=== PATIENT | male | born 1935 | race Caucasian/White ===

== ENCOUNTER 2021-08-16 14:45 | Emergency (ER) | payer MEDICARE ==
[~2021-08-16] VITALS: Ht 182.9 cm; Wt 81.8 kg
[~2021-08-16 14:45] MED LIST: CALC500T63 PO; CEFD300C3 PO; FLO0.4C PO; METR-159 PO; MULT-620 PO; ROSU40TA22 PO; TERA2CAP4 PO
[2021-08-16] MEDS ORDERED: normal saline 1000ML IV soln IVB ONE (15:50)
[2021-08-16 16:57] LABS: BASOPHILS # (AUTO) 0.1 X10'3 (0-0.2); BASOPHILS % (AUTO) 0.8 % (0-1); EOSINOPHILS % (AUTO) 0.4 % (0-6); HEMATOCRIT 40.5 % (42.0-52.0); HEMOGLOBIN 13.5 g/dl (14.0-17.9); LYMPHOCYTES # (AUTO) 1.1 X10'3 (1.1-4.8); LYMPHOCYTES % (AUTO) 9.5 % (21-51); MEAN CORPUSCULAR HEMOGLOBIN 29.7 PG (27.0-31.0); MEAN CORPUSCULAR HGB CONC 33.4 g/dL (33.0-36.5); MEAN PLATELET VOLUME 7.1 FL (7.4-10.4); MONOCYTES % (AUTO) 8.4 % (2-12); NEUTROPHILS # (AUTO) 9.7 X10'3 (1.8-7.7); NEUTROPHILS % (AUTO) 80.9 % (42-75); PLATELET COUNT 467 X10'3 (140-440); RED BLOOD COUNT 4.55 X10'6 (4.70-6.10); RED CELL DISTRIBUTION WIDTH 14.1 % (11.5-14.5)
[2021-08-16 17:01] LABS: CLARITY,URINE CLOUDY (Clear); GLUCOSE, URINE NEGATIVE (Neg); KETONES,URINE TRACE mg/dl (Neg); LEUKOCYTE ESTERASE ,URINE NEGATIVE (Neg); NITRITES, URINE NEGATIVE (Neg); OCCULT BLOOD,URINE LARGE (Neg); PH,URINE 5.5 (4.8-8.0); PROTEIN,URINE 100 mg/dl (Neg)
[2021-08-16 17:12] VITALS: BP 137/77
[2021-08-16 17:18] LABS: ALANINE AMINOTRANSFERASE 32 U/L (12-78); ALBUMIN 2.7 G/DL (3.4-5.0); ALBUMIN/GLOBULIN RATIO 0.6 (1.1-1.5); ANION GAP 13 (8-16); ASPARTATE AMINO TRANSFERASE 26 U/L (10-37); BILIRUBIN,TOTAL 0.6 MG/DL (0.1-1.0); BLOOD UREA NITROGEN 16 MG/DL (7-18); BUN/CREATININE RATIO 14.2 (5.4-32.0); CALCIUM 8.4 MG/DL (8.5-10.1); CHLORIDE 108 MMOL/L (99-107); CREATININE 1.13 MG/DL (0.60-1.10); GLUCOSE 108 MG/DL (70-104); POTASSIUM 4.5 MMOL/L (3.5-5.1); SODIUM 146 MMOL/L (135-145); TOTAL CARBON DIOXIDE 25.2 MMOL/L (24-32); eGFR 62 ML/MIN
[2021-08-16 17:56] LABS: UA COLLECTION TYPE STRAIGHT CATH
[2021-08-16 17:57] LABS: COLOR,URINE DARK YELLOW (Yellow)
[2021-08-16 17:59] LABS: AMORPHOUS URATES 4+; BACTERIA,URINE FEW /HPF (Neg); RBC,URINE 20-50 /HPF (0-2); SQUAMOUS EPITHELIAL CELL,UR FEW /LPF (FEW); TRANSITIONAL EPI CELLS,URINE FEW /HPF; WBC,URINE 0-4 /HPF (0-4)
== END 2021-08-16 19:38 | disposition home or self-care (01) ==
LOC: ER 14:45
DX: R53.1 Weakness (principal); E78.00 Pure hypercholesterolemia, unspecified; Z98.890 Other specified postprocedural states; Z72.89 Other problems related to lifestyle; Z79.2 Long term (current) use of antibiotics; Z79.899 Other long term (current) drug therapy
CPT/HCPCS: 36415; 80053; 81001; 85025; 93005; 96360; 96361; 99284; J7030

== ENCOUNTER 2022-07-17 13:29 | Outpatient (CLI) | payer MEDICARE ==
[~2022-07-17 13:29] MED LIST changes: -CEFD300C3 PO; -FLO0.4C PO; -METR-159 PO
== END 2022-07-17 23:59 | disposition home or self-care (01) ==
LOC: RAD 13:29
PROVIDERS: ATTEND Internal Medicine
DX: I08.8 Other rheumatic multiple valve diseases (principal)
CPT/HCPCS: 93306

== ENCOUNTER 2022-10-31 12:14 | Day surgery (SDC) | payer MEDICARE ==
[2022-10-27 11:34] LABS: BASOPHILS % (AUTO) 0.9 % (0-1); EOSINOPHILS # (AUTO) 0.1 X10'3 (0-0.9); EOSINOPHILS % (AUTO) 2.5 % (0-6); HEMATOCRIT 44.4 % (42.0-52.0); LYMPHOCYTES # (AUTO) 1.4 X10'3 (1.1-4.8); LYMPHOCYTES % (AUTO) 27.1 % (21-51); MEAN CORPUSCULAR HEMOGLOBIN 30.3 PG (27.0-31.0); MEAN CORPUSCULAR HGB CONC 33.7 g/dL (33.0-36.5); MEAN CORPUSCULAR VOLUME 90.1 FL (78-98); MEAN PLATELET VOLUME 7.9 FL (7.4-10.4); MONOCYTES # (AUTO) 0.5 X10'3 (0-0.9); MONOCYTES % (AUTO) 10.1 % (2-12); NEUTROPHILS # (AUTO) 3.1 X10'3 (1.8-7.7); NEUTROPHILS % (AUTO) 59.4 % (42-75); PLATELET COUNT 182 X10'3 (140-440); RED BLOOD COUNT 4.93 X10'6 (4.70-6.10); RED CELL DISTRIBUTION WIDTH 13.7 % (11.5-14.5); WHITE BLOOD COUNT 5.3 X10'3 (4.5-11.0)
[2022-10-27 11:51] LABS: APTT 29 SECONDS (22-32)
[2022-10-27 11:55] LABS: ALBUMIN 3.6 G/DL (3.4-5.0); ANION GAP 2 (8-16); BLOOD UREA NITROGEN 8 MG/DL (7-18); BUN/CREATININE RATIO 9.9 (10.0-20.0); CALCIUM 8.9 MG/DL (8.5-10.1); CHLORIDE 111 MMOL/L (99-107); CHOL/HDL RATIO 2.2 (0.00-4.99); CHOLESTEROL 124 MG/DL (0-200); CREATININE 0.81 MG/DL (0.60-1.10); GLUCOSE 94 MG/DL (70-104); HDL CHOLESTEROL 56 MG/DL (35-60); LDL CHOLESTEROL 50 MG/DL (50-100); POTASSIUM 4.3 MMOL/L (3.5-5.1); SODIUM 141 MMOL/L (135-145); TOTAL CARBON DIOXIDE 27.8 MMOL/L (24-32); TRIGLYCERIDES 67 MG/DL (20-135); eGFR > 90 ML/MIN
[~2022-10-31] VITALS: Ht 177.8 cm; Wt 93.5 kg
[2022-10-31] VITALS (10 sets, daily range): BP systolic 121–151; BP diastolic 65–84
[2022-10-31] MEDS ORDERED: ASPI81TA52 PO (12:41)
[2022-10-31] MEDS ORDERED: diphenhydrAMINE 25mg capsule PO PRN (12:45)
[2022-10-31] MEDS ORDERED: LORazepam 0.5 MG tablet PO PRN (12:45)
[2022-10-31] MEDS ORDERED: normal saline 1,000 ML IV SCH (12:45)
[2022-10-31] MEDS ORDERED: fentaNYL/PF 50MCG/1 ML 2ML syringe ONE (13:06)
[2022-10-31] MEDS ORDERED: LIDOcaine 1% (10mg/ml) 2ml vial ONE (13:06)
[2022-10-31] MEDS ORDERED: heparin 1,000unit/ml 10ml vial 10 ML ONE (13:06)
[2022-10-31] MEDS ORDERED: nitroGLYCERIN-Tridil 50MG/D5W 250 ML IV ONE (13:06)
[2022-10-31] MEDS ORDERED: midazolam 1 mg/ML 2ml injection ONE (13:06)
[2022-10-31] MEDS ORDERED: verapamil 2.5 mg/ml inj IV ONE (13:06)
[2022-10-31] MEDS ORDERED: iohexol 350MG/ML 100ml bottle IV ONE (13:06)
[2022-10-31 15:05] LABS: ISTAT HGB ART 13.3 g/dl (14.0-17.9); ISTAT Hct ART 39 %PCV (42-52); ISTAT O2 SATURATION ARTERIAL 94 % (95-98); ISTAT SOURCE ART
[2022-10-31] MEDS ORDERED: HYDROcodone/acetaminophen 5mg/325mg tablet PO PRN (16:05)
[2022-10-31] MEDS ORDERED: HYDROcodone/acetaminophen 10/325mg tab PO PRN (16:05)
[2022-11-01 06:00] LABS: ISTAT Hct MIX 41 %PCV (42-52); ISTAT O2 SATURATION MIX VENOUS 70 % (60-80); ISTAT SOURCE VEN
== END 2022-10-31 18:56 | disposition home or self-care (01) ==
LOC: SSTAY O 12:14
PROVIDERS: ATTEND Student in an Organized Health Care Education/Training Program
DX: I35.0 Nonrheumatic aortic (valve) stenosis (principal); I10 Essential (primary) hypertension; E78.5 Hyperlipidemia, unspecified; Z79.899 Other long term (current) drug therapy; Z79.01 Long term (current) use of anticoagulants
CPT/HCPCS: 36415; 80048; 80061; 82803; 85014; 85025; 85610; 85730; 93005; 93456; 99152; 99153; C1769; C1894; J1644; J2250; J3010; J3490; J7030; Q9967; A6258; A6402; C1751

== ENCOUNTER 2022-11-29 10:19 | Outpatient (CLI) | payer MEDICARE ==
[~2022-11-29 10:19] MED LIST changes: +ASPI81TA52 PO; -CALC500T63 PO
[2022-11-29 10:54] LABS: BASOPHILS % (AUTO) 0.8 % (0-1); EOSINOPHILS # (AUTO) 0.1 X10'3 (0-0.9); EOSINOPHILS % (AUTO) 1.7 % (0-6); HEMATOCRIT 44.3 % (42.0-52.0); HEMOGLOBIN 14.8 g/dl (14.0-17.9); LYMPHOCYTES # (AUTO) 1.6 X10'3 (1.1-4.8); LYMPHOCYTES % (AUTO) 29.6 % (21-51); MEAN CORPUSCULAR HEMOGLOBIN 30.2 PG (27.0-31.0); MEAN CORPUSCULAR HGB CONC 33.4 g/dL (33.0-36.5); MEAN CORPUSCULAR VOLUME 90.4 FL (78-98); MEAN PLATELET VOLUME 7.8 FL (7.4-10.4); MONOCYTES # (AUTO) 0.5 X10'3 (0-0.9); NEUTROPHILS # (AUTO) 3.1 X10'3 (1.8-7.7); NEUTROPHILS % (AUTO) 57.9 % (42-75); PLATELET COUNT 180 X10'3 (140-440); RED CELL DISTRIBUTION WIDTH 14.3 % (11.5-14.5); WHITE BLOOD COUNT 5.3 X10'3 (4.5-11.0)
[2022-11-29 11:01] LABS: APTT 28 SECONDS (22-32)
[2022-11-29 11:09] LABS: ALANINE AMINOTRANSFERASE 35 U/L (12-78); ALBUMIN 3.6 G/DL (3.4-5.0); ALBUMIN/GLOBULIN RATIO 1.1 (1.1-1.5); ALKALINE PHOSPHATASE 61 IU/L (46-116); ANION GAP 5 (8-16); ASPARTATE AMINO TRANSFERASE 34 U/L (10-37); BILIRUBIN,TOTAL 0.6 MG/DL (0.1-1.0); BLOOD UREA NITROGEN 18 MG/DL (7-18); CALCIUM 8.8 MG/DL (8.5-10.1); CHLORIDE 108 MMOL/L (99-107); CREATININE 0.82 MG/DL (0.60-1.10); GLUCOSE 91 MG/DL (70-104); POTASSIUM 4.3 MMOL/L (3.5-5.1); SODIUM 141 MMOL/L (135-145); TOTAL CARBON DIOXIDE 28.5 MMOL/L (24-32); TOTAL PROTEIN 6.9 G/DL (6.4-8.2); eGFR 89 ML/MIN
[2022-11-29] MEDS ORDERED: IODIXANOL 320 MG/ML INFUS..BTL 100ML IV ONE (11:29)
== END 2022-11-29 23:59 | disposition home or self-care (01) ==
LOC: RAD 10:19
PROVIDERS: ATTEND Internal Medicine Cardiovascular Disease
DX: Z01.811 Encounter for preprocedural respiratory examination (principal); R06.02 Shortness of breath; I35.0 Nonrheumatic aortic (valve) stenosis; I65.29 Occlusion and stenosis of unspecified carotid artery; I70.0 Atherosclerosis of aorta; I70.8 Atherosclerosis of other arteries; K57.30 Diverticulosis of large intestine without perforation or abscess without bleeding; J98.4 Other disorders of lung; M47.814 Spondylosis without myelopathy or radiculopathy, thoracic region
CPT/HCPCS: 36415; 71046; 71275; 74174; 80053; 83880; 85025; 85610; 85730; 94010; 94727; 94729; J3490; Q9967

== ENCOUNTER 2023-04-12 05:48 | Inpatient (IN) | payer MEDICARE ==
[2023-04-09 11:43] LABS: BASOPHILS % (AUTO) 0.8 % (0-1); EOSINOPHILS # (AUTO) 0.1 X10'3 (0-0.9); EOSINOPHILS % (AUTO) 1.1 % (0-6); LYMPHOCYTES # (AUTO) 1.4 X10'3 (1.1-4.8); LYMPHOCYTES % (AUTO) 27.8 % (21-51); MEAN CORPUSCULAR HEMOGLOBIN 31.3 PG (27.0-31.0); MEAN CORPUSCULAR VOLUME 92.1 FL (78-98); MEAN PLATELET VOLUME 8.2 FL (7.4-10.4); MONOCYTES # (AUTO) 0.4 X10'3 (0-0.9); MONOCYTES % (AUTO) 8.9 % (2-12); NEUTROPHILS % (AUTO) 61.4 % (42-75); PRE OP HEMOGLOBIN 14.6 g/dL (14.0-17.9); PRE OP PLATELET COUNT 187 X10'3 (140-440); PRE OP WHITE BLOOD COUNT 4.9 10'3 (4.8-10.8); RED BLOOD COUNT 4.67 X10'6 (4.70-6.10)
[2023-04-09 11:57] LABS: PRE OP PROTIME 10.5 SECONDS (9.0-12.0)
[2023-04-09 12:06] LABS: ALBUMIN 3.6 G/DL (3.4-5.0); ALKALINE PHOSPHATASE 68 IU/L (46-116); BLOOD UREA NITROGEN 12 MG/DL (7-18); BUN/CREATININE RATIO 14.8 (10.0-20.0); CALCIUM 9.2 MG/DL (8.5-10.1); CHLORIDE 105 MMOL/L (99-107); CREATININE 0.81 MG/DL (0.60-1.10); PRE OP ALT 35 U/L (30-65); PRE OP ANION GAP 4 (8-16); PRE OP AST 28 U/L (10-37); PRE OP BILIRUB, TOTAL 0.9 MG/DL (0.0-1.0); PRE OP GLUCOSE 100 MG/DL (70-104); PRE OP POTASSIUM 4.4 MMOL/L (3.4-5.1); PRE OP SODIUM 140 MMOL/L (135-145); TOTAL CARBON DIOXIDE 31.1 MMOL/L (24-32); TOTAL PROTEIN 7.2 G/DL (6.4-8.2); eGFR 90 ML/MIN
[2023-04-09 12:28] LABS: PRO BRAIN NATRIURETIC PEPTIDE 211 PG/ML (0-450)
[~2023-04-12] VITALS: Ht 177.8 cm; Wt 86.3 kg
[2023-04-12] VITALS (16 sets, daily range): BP systolic 107–145; BP diastolic 53–82; PULSE 58–78; RESP 9–22; TEMP 97.4–98.4; O2SAT 94–100
[~2023-04-12 05:48] MED LIST changes: +BETA1TAB18 PO; +BIOT1TAB7 PO; +MULT-1142 PO; +OMEG10006 PO; +aspirin 325mg tablet PO ONE; +cefazolin 2gm/D5W 100mL 100 ML IV ONE; +famotidine 20mg tablet PO ONE; +ondansetron/PF 4mg/2ml inj IV PRN; +ringers solution, lacted 1,000 ML IV SCH; +vancomycin 1,500 MG in NS 300ml IV soln IV ONE
[2023-04-12] MEDS ORDERED: meperidine/PF 25mg/ml syringe IV PRN ×3 (07:20)
[2023-04-12] MEDS ORDERED: hydrALAZINE 20mg/ml inj. IV PRN ×2 (07:20→10:25)
[2023-04-12] MEDS ORDERED: ringers solution, lacted 1,000 ML IV SCH (07:20)
[2023-04-12] MEDS ORDERED: ondansetron/PF 4mg/2ml inj IV PRN ×2 (07:20→10:25)
[2023-04-12] MEDS ORDERED: morphine 2 MG/ML inj. syringe IV PRN (07:20)
[2023-04-12] MEDS ORDERED: morphine 4 MG/ML inj SYRINge IV PRN (07:20)
[2023-04-12] MEDS ORDERED: proCHLORperazine 10 MG/2 ml inj IV PRN ×2 (07:20→10:25)
[2023-04-12] MEDS ORDERED: labetalol 20mg/4ml (5mg/ml) syringe IV PRN ×2 (07:20→10:25)
[2023-04-12] MEDS ORDERED: acetaminophen 1,000mg/100ml IV 100 ML IV PRN (07:20)
[2023-04-12] MEDS ORDERED: LIDOcaine 1% (10mg/ml) 2ml vial ONE (08:40)
[2023-04-12] MEDS ORDERED: heparin 1,000 UNITS/NS 500ml 1,500 ML ONE (08:54)
[2023-04-12] MEDS ORDERED: iohexol 350MG/ML 100ml bottle IV ONE (08:54)
[2023-04-12] MEDS ORDERED: LIDOcaine 1% (10mg/ml)w/preservative inj. 20ml MDV ONE (09:05)
[2023-04-12] MEDS ORDERED: fentaNYL/PF 50MCG/1 ML 2ML syringe ONE (09:18)
[2023-04-12] MEDS ORDERED: protamine sulfate 10mg/ml inj. IV ONE (09:23)
[2023-04-12] MEDS ORDERED: midazolam 1 mg/ML 2ml injection ONE (09:23)
[2023-04-12] MEDS ORDERED: protamine sulfate 10mg/ml inj. ONE (09:31)
[2023-04-12] MEDS ORDERED: 0.9 % SODIUM CHLORIDE 10 ML VIAL ONE (09:34)
[2023-04-12] MEDS ORDERED: ePHEDrine 50MG/ML INJ. ONE (09:35)
[2023-04-12] MEDS ORDERED: heparin 1,000unit/ml 10ml vial 10 ML ONE (09:35)
[2023-04-12] MEDS ORDERED: propofol inj 20 ML IV ONE ×3 (09:35)
[2023-04-12] MEDS ORDERED: acetaminophen 325mg tablet PO PRN (10:25)
[2023-04-12] MEDS ORDERED: diphenhydrAMINE 25mg capsule PO PRN (10:25)
[2023-04-12] MEDS ORDERED: pantoprazole 40mg Tablet.DR PO PRN (10:25)
[2023-04-12] MEDS ORDERED: potassium Cl 40MEQ/1/2NS 520ml 520 ML IV PRN (10:25)
[2023-04-12] MEDS ORDERED: docusate sod 100mg capsule PO PRN (10:25)
[2023-04-12] MEDS ORDERED: potassium Cl 20mEq/100mL bag 100 ML IV PRN (10:25)
[2023-04-12] MEDS ORDERED: potassium CL 10mEq/100ml bag 100 ML IV PRN (10:25)
[2023-04-12] MEDS ORDERED: HYDROcodone/acetaminophen 5mg/325mg tablet PO PRN (10:25)
[2023-04-12] MEDS ORDERED: potassium Cl 40MEQ/270ML bag 250 ML IV PRN (10:25)
[2023-04-12] MEDS ORDERED: magnesium 2GM in 50ml NS 50 ML IV PRN (10:25)
[2023-04-12] MEDS ORDERED: magnesium 4gm in 100ml NS 100 ML IV PRN (10:25)
[2023-04-12] MEDS ORDERED: potassium Cl 20 mEq SR tablet PO PRN (10:25)
--- NOTE | 2023-04-12 10:34 | NUR ---
Received from OR via hospital bed , accompanied by Anesthesiologist alejandrina and report given by Anesthesiolgist and agriculture laboratory technician, RN. Pt oriented to self, history of demnentia, baseline confusion, following commands appropriately. Right 7french perclosure, dressing CDI no hematoma. Right DP pulse weak but palpable. Left 6 kosovan perclosure and 6 kosovan angioseal, dressing CDI, no hematoma present. Small amount of moisture associated redness in left groin crease. Left DP pulse weak but palpable.
[2023-04-12] MEDS: phenylephrine inj 50 MG in normal saline 250ml IV solN IV SCH (10:54)
[2023-04-12] MEDS: nitroPRUSSIDE (NIPRIDE) (200MCG/ML) 100ML Drip IV SCH ×2 (10:54→20:59)
--- NOTE | 2023-04-12 11:34 | NUR ---
Report given to HEYDI Adan. Pt transferred with all personal belongings. Bed locked and low with call light in reach. Groin sites checked with RN. Unable to reach family member about transfer.
--- NOTE | 2023-04-12 11:34 | NUR ---
HEYDI Adan notified of doctors order for patient to be OOB at 1630. Nurse verbalized understanding.
--- NOTE | 2023-04-12 14:00 | NUR ---
IV Assisting other pt w/CN and pt pulled out his PIV from his L FA. Cath tip intact, pressure held for a couple minutes and 2X2 dressing applied. Pt is confused. Doesn't understand where he is or why. Clarified but he still states "I don't understand, something is wrong. This is not my home".
[2023-04-12] MEDS: ceFAZolin 1GM/D5W- ADD-VANTAGE 50 ML IV SCH (16:26)
[2023-04-12] MEDS: sod chloride 0.9% 10ml flush syringe IV SCH (16:26)
--- NOTE | 2023-04-12 17:47 | NUR ---
MD Dr. Benny Patrick to see pt. Checked groin sites and explained plan to pt. Pt just wants to go. Dr. Patrick explained he needed to stay until tomorrow afternoon. Pt is very forgetful and after left, he was asking where his was so he could go home. He said he'd eat at home and not here. I did contact his and she stated she will not come in tonight because if she does he will want her to take him home tonight. She's had that experience before. She said she'd be here to take him home once he's ready for discharge.
[2023-04-12] MEDS: normal saline 1000ml 1,000 ML IV SCH ×2 (18:27→19:52)
[2023-04-12] MEDS: ALPRAZolam 0.25mg tablet PO PRN (18:27)
--- NOTE | 2023-04-12 18:30 | NUR ---
Patient in room ICU 2044. I have received report from Suzette SOLIZ and had the opportunity to ask questions and assume patient care.
[2023-04-12] MEDS: vancomycin/NS 1 GM ADD-VANTAGE 250 ML IV SCH (19:52)
[2023-04-12] MEDS ORDERED: multivitamins, therapeutics tablet PO SCH (21:00)
[2023-04-12] MEDS ORDERED: atorvastatin 20mg tablet PO SCH (21:00)
[2023-04-12] MEDS ORDERED: aspirin 81mg, enteric-coated 1 TAB TABLET.DR PO SCH (21:00)
[2023-04-12] MEDS ORDERED: Terazosin 1mg capsule PO SCH (21:00)
[2023-04-13] MEDS: phenylephrine inj 50 MG in normal saline 250ml IV solN IV SCH (00:51)
[2023-04-13] MEDS: ceFAZolin 1GM/D5W- ADD-VANTAGE 50 ML IV SCH ×2 (01:01→07:35)
[2023-04-13 03:54] VITALS: BP 136/64; PULSE 72; RESP 17; TEMP 98.4; O2SAT 97
[2023-04-13] MEDS: ALPRAZolam 0.25mg tablet PO PRN (04:24)
--- NOTE | 2023-04-13 06:21 | NUR ---
Problems reprioritized. Patient report given, questions answered & plan of care reviewed with Zahra SOLIZ.
[2023-04-13 06:48] LABS: BASOPHILS % (AUTO) 0.8 % (0-1); EOSINOPHILS % (AUTO) 0.5 % (0-6); HEMATOCRIT 35.4 % (42.0-52.0); HEMOGLOBIN 12.1 g/dl (14.0-17.9); LYMPHOCYTES # (AUTO) 0.8 X10'3 (1.1-4.8); LYMPHOCYTES % (AUTO) 13.9 % (21-51); MEAN CORPUSCULAR HEMOGLOBIN 31.6 PG (27.0-31.0); MEAN CORPUSCULAR HGB CONC 34.1 g/dL (33.0-36.5); MEAN CORPUSCULAR VOLUME 92.6 FL (78-98); MEAN PLATELET VOLUME 8.4 FL (7.4-10.4); MONOCYTES # (AUTO) 0.7 X10'3 (0-0.9); MONOCYTES % (AUTO) 11.4 % (2-12); NEUTROPHILS # (AUTO) 4.4 X10'3 (1.8-7.7); NEUTROPHILS % (AUTO) 73.4 % (42-75); PLATELET COUNT 134 X10'3 (140-440); RED BLOOD COUNT 3.82 X10'6 (4.70-6.10); RED CELL DISTRIBUTION WIDTH 13.6 % (11.5-14.5); WHITE BLOOD COUNT 5.9 X10'3 (4.5-11.0)
[2023-04-13] MEDS: normal saline 1000ml 1,000 ML IV SCH (06:55)
[2023-04-13 07:10] LABS: ALANINE AMINOTRANSFERASE 20 U/L (12-78); ALBUMIN 2.9 G/DL (3.4-5.0); ALKALINE PHOSPHATASE 56 IU/L (46-116); ANION GAP 5 (8-16); ASPARTATE AMINO TRANSFERASE 23 U/L (10-37); BILIRUBIN,TOTAL 1.1 MG/DL (0.1-1.0); BLOOD UREA NITROGEN 8 MG/DL (7-18); BUN/CREATININE RATIO 10.5 (10.0-20.0); CALCIUM 8.6 MG/DL (8.5-10.1); CHLORIDE 109 MMOL/L (99-107); CREATININE 0.76 MG/DL (0.60-1.10); GLUCOSE 97 MG/DL (70-104); MAGNESIUM 2.1 MG/DL (1.5-2.4); POTASSIUM 4.2 MMOL/L (3.5-5.1); PRO BRAIN NATRIURETIC PEPTIDE 547 PG/ML (0-450); SODIUM 142 MMOL/L (135-145); TOTAL CARBON DIOXIDE 28.1 MMOL/L (24-32); TOTAL PROTEIN 5.7 G/DL (6.4-8.2); eCRCL 72 ML/MIN; eGFR > 90 ML/MIN
[2023-04-13] MEDS: sod chloride 0.9% 10ml flush syringe IV SCH ×2 (07:39)
[2023-04-13] MEDS: vancomycin/NS 1 GM ADD-VANTAGE 250 ML IV SCH (07:41)
[2023-04-13 08:00] VITALS: BP 147/54; PULSE 73; RESP 17; TEMP 96.7; O2SAT 95
[2023-04-13] MEDS ORDERED: OMEGA-3/DHA/EPA/FISH OIL 1 EACH CAPSULE.DR PO SCH (08:00)
[2023-04-13] MEDS ORDERED: IRON PO SCH (08:00)
[2023-04-13] MEDS ORDERED: [UNRECOGNIZED DRUG - OTHER] PO SCH (08:00)
[2023-04-13] MEDS ORDERED: LYCOP PO SCH (08:00)
[2023-04-13] MEDS ORDERED: MULTIVITS CA MIN PO SCH (08:00)
[2023-04-13] MEDS ORDERED: beta-carotene(A) w/C & E + minerals tab PO SCH (08:00)
[2023-04-13] MEDS ORDERED: aspirin 81mg tab.chew PO SCH (08:30)
[2023-04-13 12:00] VITALS: BP 121/57; PULSE 75; RESP 18; TEMP 97.8; O2SAT 100
[2023-04-13] MEDS: nitroPRUSSIDE (NIPRIDE) (200MCG/ML) 100ML Drip IV SCH (12:28)
[2023-04-13 14:17] VITALS: BP 116/56; PULSE 98; RESP 18; TEMP 97.8; O2SAT 98
--- NOTE | 2023-04-13 15:15 | NUR ---
Patient was discharged home with , [facility]. PIV was removed from left AC, catheter intact. Discharge instructions, home medications, and follow up appointments reviewed with patient's . She verbalized understanding.
== END 2023-04-13 15:30 | disposition home or self-care (01) | DRG 266 ==
LOC: PAS IN 05:48 → ICU 2S 11:37
PROVIDERS: ADMIT Internal Medicine Cardiovascular Disease; ATTEND Internal Medicine Cardiovascular Disease
PROC: B41D1ZZ Fluoroscopy of Aorta and Bilateral Lower Extremity Arteries using Low Osmolar Contrast (ICD-10-PCS; 2023-04-12)
PROC: 027F3ZZ Dilation of Aortic Valve, Percutaneous Approach (ICD-10-PCS; 2023-04-12)
PROC: 03HY32Z Insertion of Monitoring Device into Upper Artery, Percutaneous Approach (ICD-10-PCS; 2023-04-12)
PROC: 02RF38Z Replacement of Aortic Valve with Zooplastic Tissue, Percutaneous Approach (ICD-10-PCS; principal; 2023-04-12 09:08)
DX: I35.0 Nonrheumatic aortic (valve) stenosis (principal); Z00.6 Encounter for examination for normal comparison and control in clinical research program; I50.33 Acute on chronic diastolic (congestive) heart failure; F03.90 Unspecified dementia, unspecified severity, without behavioral disturbance, psychotic disturbance, mood disturbance, and anxiety
CPT/HCPCS: 33361; 36415; 71045; 71046; 76937; 80053; 82948; 83735; 83880; 85025; 85347; 85610; 85730; 86885; 86900; 86901; 86920; 87081; 93005; 93308; A4618; A6213; A6258; A6449; C1756; C1760; C1769; C1894; G0378; J0690; J1644; J2250; J2370; J2405; J2704; J2720; J3010; J3370; J3490; J7030; J7040; J7050; J7120; Q9967

== ENCOUNTER 2024-08-27 13:45 | Emergency (ER) | payer MEDICARE ==
[~2024-08-27] VITALS: Ht 175.3 cm; Wt 84.0 kg
[~2024-08-27 13:45] MED LIST changes: -ROSU40TA22 PO; +ROSU40TA89 PO; -aspirin 325mg tablet PO ONE; -cefazolin 2gm/D5W 100mL 100 ML IV ONE; -famotidine 20mg tablet PO ONE; -ondansetron/PF 4mg/2ml inj IV PRN; -ringers solution, lacted 1,000 ML IV SCH; -vancomycin 1,500 MG in NS 300ml IV soln IV ONE
[2024-08-27 15:48] VITALS: BP 114/60; PULSE 74; RESP 16; TEMP 97.7; O2SAT 98
== END 2024-08-27 15:49 | disposition home or self-care (01) ==
LOC: ER 13:45
DX: S71.102A Unspecified open wound, left thigh, initial encounter (principal); E78.00 Pure hypercholesterolemia, unspecified; F03.90 Unspecified dementia, unspecified severity, without behavioral disturbance, psychotic disturbance, mood disturbance, and anxiety; Z79.82 Long term (current) use of aspirin; X58.XXXA Exposure to other specified factors, initial encounter; Y93.89 Activity, other specified; Y92.89 Other specified places as the place of occurrence of the external cause; Y99.8 Other external cause status
CPT/HCPCS: 99281; A6402; A6446; A6449

== ENCOUNTER 2025-04-16 13:24 | Inpatient (IN) | payer MEDICARE ==
[~2025-04-16] VITALS: Ht 177.8 cm; Wt 85.0 kg
--- NOTE | 2025-04-16 14:02 | RADIOLOGY REPORT ---
EXAM: CT CT CERVICAL SPINE INDICATION: head strike TECHNIQUE: Non contrast axial images of the cervical spine have been obtained with coronal and sagittal reformatted images. CT scans at this facility use dose modulation, iterative reconstruction, and/or weight based dosing when appropriate to reduce radiation dose to as low as reasonably achievable. COMPARISON: CT CT HEAD on DOS: 04/16/25 FINDINGS: ANATOMY: Cervical lordosis is maintained. VERTEBRAL BODIES: The vertebral bodies are normal in height and alignment. The dens is intact, the lateral masses of C1 are normally aligned, and the atlantodental interval is normal for age. Degenerative change of the cervical SPINAL CANAL: No significant spinal canal stenosis. INTERVERTEBRAL DISCS: No CT findings to suggest traumatic disc herniation or acute hematoma. Intervertebral disc height loss C5-6 with marginal osteophytosis SOFT TISSUES: There is no prevertebral soft tissue swelling. OTHER: The partially visualized lung apices are clear. facet arthropathy IMPRESSION: 1. No acute cervical spine fracture or malalignment.
--- NOTE | 2025-04-16 14:04 | RADIOLOGY REPORT ---
EXAM: CT CT HEAD, CATH THEOLOGY TEACHER TAVR INDICATION: head strike TECHNIQUE: CT of the head without intravenous contrast. Radiation Dose Information: CT Dose: CTDI volume is 25 mGy. Dose-length product is 250 mGy*cm The dose indicators for CT are the volume Computed Tomography (CT) Dose Index (CTDIvol) and the Dose Length Product (DLP), and are measured in units of mGy and mGy-cm, respectively. These indicators are not patient dose, but values generated from the CT scanner acquisition factors. The report includes radiation exposure data for exposures received during this examination. COMPARISON: CT HEAD on DOS: 07/28/21 FINDINGS: There is no evidence of acute intracranial hemorrhage, extra-axial collection, mass effect, midline shift, herniation or hydrocephalus. The ventricles, sulci and cisterns are age appropriate. The miles-white differentiation is intact. Patchy periventricular and subcortical white matter hypoattenuation is nonspecific but may be related to small vessel ischemic disease. The visualized paranasal sinuses and mastoid air cells are clear. The surrounding soft tissues and osseous structures are unremarkable. IMPRESSION: No acute intracranial abnormality.
[2025-04-16 14:24] LABS: MEAN PLATELET VOLUME 7.7 FL (7.4-10.4); RED CELL DISTRIBUTION WIDTH 14.1 % (11.5-14.5)
[2025-04-16 14:48] LABS: CREATININE 0.92 MG/DL (0.60-1.10); TOTAL CARBON DIOXIDE 29.2 MMOL/L (24-32); eCRCL 57 ML/MIN; eGFR 78 ML/MIN
[2025-04-16 14:55] LABS: LACTIC SEPSIS 1.9 MMOL/L (0.4-2.0)
--- NOTE | 2025-04-16 15:33 | ELECTROCARDIOGRAPH REPORT ---
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 Lázaro Pratt Measurements Intervals [place] Rate: 67 P: 47 PA: 191 QRS: -27 QRSD: 146 T: 17 QT: 429 QTc: 453 Interpretive Statements Sinus rhythm Right bundle branch block Electronically Signed On 04-17-2025 7:40:[address] Lázaro Pratt Please click the below link to view image of tracing.
[2025-04-16] MEDS: normal saline 1000ml 1,000 ML IV ONE (16:04)
[2025-04-16] MEDS: CefTRIAXone/D5W-Rocephin 1gm 50 ML IV ONE (16:04)
[2025-04-16 16:53] LABS: LEUKOCYTE ESTERASE ,URINE NEGATIVE (Neg); NITRITES, URINE NEGATIVE (Neg); OCCULT BLOOD,URINE NEGATIVE (Neg); UA COLLECTION TYPE CLN CATCH MIDSTREAM
[2025-04-16 16:55] LABS: FINE GRANULAR CAST 0-3 /LPF (NEGATIVE); SQUAMOUS EPITHELIAL CELL,UR FEW /LPF (FEW)
--- NOTE | 2025-04-16 17:48 | Physician Documentation ---
History of Present Illness ~ Chief Complaint: ALOC Stated Complaint: ALTERED Time Seen by MD: 13:30 Primary Medical Doctor: Dr. Patrick Mode of Arrival: EMS HPI 89 year old male with history of dementia BIB EMS for increasing agitation, having fallen at home. En route he was noted to be confused. at bedside reports he is normally more cognizant than this. He has no idea why he is here. He smells of urine. No further history is obtainable. Medication Reconciliation Allergies: Coded Allergies: No Known Allergies (Unverified , 08/31/16) Scheduled Aspirin (Aspirin EC), 1 TAB PO HS, (Reported) Beta-Carotene(A) W-C & E/Min* (Ocuvite Tablet*), 1 TAB PO DAILY, (Reported) Biotin (Biotin), 1 TAB PO DAILY, (Reported) Multivitamins (Multivitamins), 1 TAB PO HS, (Reported) Multivits,Ca,Min/Iron/FA/Lycop (Centrum Men's Tablet), 1 TAB PO DAILY, (Reported) [place]-3 Fatty Acids ([place]arat-3), 1,000 MG PO DAILY, (Reported) Rosuvastatin Calcium (Rosuvastatin Calcium), 1 TAB PO QHS, (Reported) Terazosin HCl (Terazosin HCl), 1 CAP PO HS, (Reported) Past Medical History Past Medical History: High Cholesterol, Bowel Obstruction, BPH, Hernia Past Surgical History: abdominal surgery Alcohol Use: Occasionally Lives with: Spouse Lives In: Home Review of Systems All Other Systems at this time: Reviewed and Negative Physical Exam Vital Signs: RN Vital Signs have been reviewed: Yes, Temperature: 96.4, Source: Axillary, Heart Rate: 62, Respiratory Rate: 20, BP: 142/106, Pulse Oximetry: 94, Weight: 85.000 Oxygen Flow Rate: 0 Physical Exam HEENT: PERRL, moist oral mucosa, EOMI; abrasion to midline frontal forehead Pulmonary: No respiratory distress Cardiac: RRR, no murmur, rub or gallop GI: nondistended, soft, nontender, no guarding, no rebound MSK: no deformity Skin: w/d/i, no rash Neuro: alert, confused, nonfocal Psych: agitated Progress Results/Orders Results/Orders Orders - DEISY DASILVA MD Ct Head (04/16/25 13:30) Ct Cervical Spine (04/16/25 ) * Straight Cath* (04/16/25 15:34) Cult Urine + [place] [facility] (04/16/25 16:55) Page Hospitalist (04/16/25 ) Completed Orders - DEISY DASILVA MD Cbc/Diff (04/16/25 13:30) CMP (04/16/25 13:30) Ammonia (04/16/25 13:30) Lacticsepsis (04/16/25 13:30) Ct Head (04/16/25 13:30) Ct Cervical Spine (04/16/25 ) Ceftriaxone/A2t-Egtvvjvx 1gm (Rocephin 1 (04/16/25 14:40) Normal Saline 1000ml (0.9% Sodium Chlori (04/16/25 14:55) Electrocardiogram (04/16/25 13:30) Ua W/Microscopic, Cult If Ind (04/16/25 16:00) Lorazepam Inj (Ativan Inj) (04/16/25 16:55) Lorazepam Inj (Ativan Inj) (04/16/25 17:00) Lorazepam Tablet (Ativan Tablet) (04/16/25 17:05) Medications Received in ER Medications (Trade) Dose Ordered Sig/Janis Route PRN Reason Start Time Stop Time Status Last Admin Dose Admin Ceftriaxone Sodium 50 ml @ 100 mls/hr ONCE ONCE IV 04/16/25 14:40 04/16/25 15:09 DC 04/16/25 16:04 100 MLS/HR Sodium Chloride 1,000 ml @ 1,000 mls/hr ONCE ONCE IV 04/16/25 14:55 04/16/25 15:54 DC 04/16/25 16:04 1,000 MLS/HR (Ativan inj) 1 mg ONCE ONCE IV 04/16/25 16:55 04/16/25 16:56 DC 04/16/25 17:14 1 MG Vital Signs 04/16/25 04/16/25 04/16/25 04/16/25 13:30 13:40 15:49 17:14 Temp 96.4 Pulse 67 62 Resp 16 18 20 B/P (MAP) 132/67 142/106 (118) Pulse Ox 97 94 O2 Flow Rate 0 0 Laboratory Tests Test 04/16/25 14:09 04/16/25 16:00 White Blood Count 5.7 Red Blood Count 4.59 L Hemoglobin 14.2 Hematocrit 42.0 Mean Corpuscular Volume 91.6 Mean Corpuscular Hemoglobin 30.9 Mean Corpuscular Hemoglobin Concent 33.7 Red Cell Distribution Width 14.1 Platelet Count 181 Mean Platelet Volume 7.7 Neutrophils (%) (Auto) 73.7 Lymphocytes (%) (Auto) 16.1 L Monocytes (%) (Auto) 8.3 Eosinophils (%) (Auto) 0.9 Basophils (%) (Auto) 1.0 Neutrophils # (Auto) 4.2 Lymphocytes # (Auto) 0.9 L Monocytes # (Auto) 0.5 Eosinophils # (Auto) 0.1 Basophils # (Auto) 0.1 CBC Comment Sodium Level 143 Potassium Level 4.3 Chloride Level 108 H Carbon Dioxide Level 29.2 Anion Gap 6 L Blood Urea Nitrogen 10 Creatinine 0.92 Estimated GFR/1.73 m2 78 BUN/Creatinine Ratio 10.9 Glucose Level 116 H Lactic Acid Level 1.9 Calcium Level 8.3 L Total Bilirubin 0.5 Aspartate Amino Transf (AST/SGOT) 23 Alanine Aminotransferase (ALT/SGPT) 17 Alkaline Phosphatase 71 Ammonia 11 Total Protein 6.2 L Albumin 2.9 L Globulin 3.3 Albumin/Globulin Ratio 0.9 L Chemistry Comments Urine Specimen Description Cln catch midstream Urine Color Yellow Urine Clarity Clear Urine pH 6.0 Urine Specific [place] 1.020 Urine Protein Trace Urine Glucose (UA) Negative Urine Ketones Negative Urine Occult Blood Negative Urine Nitrite Negative Urine Bilirubin Negative Urine Urobilinogen 1.0 Urine Leukocyte Esterase Negative Urine RBC 0-2 Urine WBC 5-10 H Urine Squamous Epithelial Cells Few Urine Bacteria Few Urine Fine Granular Casts 0-3 Urine Culture Indicated Indicated Volume Urine Centrifuged 10 ml Urine Comment Medical Decision Making Additional information obtaine: family Findings 89 year old male with dementia and possible UTI, confirmed on UA. Abx, care transferred to hospitalist. Differential Dx:Considerations: Include: dehydration, Delirium Tr., encephalopathy, hypercalcemia, hypernatremia, hyponatremia, hypoxia, drug overdose, encephalopathy, ETOH intoxication, medication toxicity, infection - sepsis, infection - UTI, heart failure, renal failure, respiratory failure, hyperthermia, hypothermia Departure Disposition: ADMITTED INPATIENT Admitted to Inpatient Unit: to hospitalist Impression: Primary Impression: UTI (urinary tract infection) Additional Impressions: Metabolic encephalopathy Dementia Condition: Stable Referrals: NO PRIMARY CARE PROVIDER (PCP) Education Educated: Patient, Family Educated regarding: diagnosis, treatment, prognosis, need for follow up Signature Scribe Signature: . Attestation: . DEISY DASILVA MD Apr 16, 2025 17:48
[2025-04-16] MEDS ORDERED: potassium Cl 20 mEq SR tablet PO PRN ×2 (18:35)
[2025-04-16] MEDS ORDERED: bisacodyl 10mg suppository rectal RC PRN (18:35)
[2025-04-16] MEDS ORDERED: potassium Cl 40MEQ/1/2NS 520ml 520 ML IV PRN (18:35)
[2025-04-16] MEDS ORDERED: mag hydrox/Alum hydrox/simeth 30ml oral suspension PO PRN (18:35)
[2025-04-16] MEDS ORDERED: ziprasidone IM 20mg inj **IM only IM PRN (18:35)
[2025-04-16] MEDS ORDERED: magnesium sulf-water 4G/100mL 100 ML IV PRN (18:35)
[2025-04-16] MEDS ORDERED: HYDROcodone/acetaminophen 5mg/325mg tablet PO PRN (18:35)
[2025-04-16] MEDS ORDERED: ondansetron/PF 4mg/2ml inj IV PRN (18:35)
[2025-04-16] MEDS ORDERED: magnesium sulf-water 2g/50mL 50 ML IV PRN (18:35)
[2025-04-16] MEDS ORDERED: HYDROcodone/acetaminophen 10/325mg tab PO PRN (18:35)
--- NOTE | 2025-04-16 18:48 | HISTORY AND PHYSICAL ---
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 A sitter is ordered, both soft wrist restraints and mittens as well as all four rails up as restraints ordered and PRN IM [place]. In speaking with the patient's the patient will return home once the patient is able to ambulate. Allergies: Coded Allergies: No Known Allergies (Unverified , 08/31/16) Home Medications Home Medications Active Reported Centrum Men's Tablet (Multivits,Ca,Min/Iron/FA/Lycop) 8 Mg Iron-200 Mcg-600 Mcg Tablet 1 Tab PO DAILY Ocuvite Tablet* (Multivitamins/Minerals) 1 Each Tablet 1 Tab PO DAILY 30 Days Biotin 1 Mg Tablet 1 Tab PO DAILY 30 Days [place]-3 ([place]-3 Fatty Acids) 1,000 Mg Capsule 1,000 Mg PO DAILY Aspirin EC (Aspirin) 81 Mg Tablet.dr 1 Tab PO HS Terazosin HCl 2 Mg Capsule 1 Cap PO HS Rosuvastatin Calcium 40 Mg Tablet 1 Tab PO QHS Multivitamins 1 Each Tablet 1 Tab PO HS 30 Days Past Medical History Past Medical History Hypertension Advanced dementia times a years Aortic stenosis BPH 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 Full code status however not for any extended period of time ROS ROS Review of systems unobtainable due to the patient's mental status Exam Vitals: Vital Signs Date Time Temp Pulse Resp B/P (MAP) Pulse Ox O2 Delivery O2 Flow Rate FiO2 04/16/25 17:14 20 04/16/25 15:49 62 142/106 (118) 94 0 04/16/25 13:30 96.4 General: Gen. No acute distress alert and oriented to self Lungs clear to ascultation bilaterally, no wheezes rales or rhonchi appreciated Heart normal sinus rhythm no murmurs rubs or clicks noted Abdomen soft nontender bowel sounds are normoactive Lower extremities no clubbing cyanosis, nor edema appreciated bilaterally Skin dressing is present over forehead and left inner thigh underneath the thigh dressing is a area of maceration/prior biopsy site 1 cm in diameter Diagnostic Data Last Recorded Lab Results: 04/16/25 1409 04/16/25 1409 Advance Care Planning Advanced Care plannin - 30 Minutes Problems: (1) Metabolic encephalopathy Status: Acute Additional Plan # metabolic encephalopathy-acute on chronic Secondary to a fall/ possible UTI Underlining advanced dementia x8 years IV Rocephin Per the patient's 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 Deana Patrick. # hypertension Monitor Q shift blood pressure Awaiting med reconciliation # BPH Awaiting med reconciliation # DVT prophylaxis SQ Lovenox I spent a total of 20 minutes on reviewing various resuscitative measures/ ACP with the patient's at the time of admission. The patient is a full code however does not want to be on life support for any extended period of time. I did has been some time discussing options with the patient's however it was clear that the patient will remain a full code however not to remain on life support for an extended period of time Date of Service: Apr 16, 2025 Billing Provider: MARCY DELAROSA DO Common Visit Codes: 73105-VEUOXGF INP/OBS CARE (HIGH) Secondary Visit Codes: 31469-SYWALODN CARE PLAN 30 MINUTES MARCY DELAROSA DO Apr 16, 2025 18:48
[2025-04-16] MEDS: K and/or MAG REPLACEMENT MC SCH (20:00)
[2025-04-16] MEDS: docusate sod 100mg capsule PO SCH (20:00)
[2025-04-16] MEDS: enoxaparin 40mg/0.4ml syringe SQ SCH (21:34)
[2025-04-16 22:00] VITALS: BP 155/82; PULSE 73; RESP 16; TEMP 97.5; O2SAT 97
[2025-04-16 22:30] VITALS: RESP 18; O2SAT 96
[2025-04-17 06:00] VITALS: BP 143/74; PULSE 64; RESP 16; TEMP 97.4; O2SAT 97
[2025-04-17 06:10] LABS: MEAN PLATELET VOLUME 8.3 FL (7.4-10.4); RED CELL DISTRIBUTION WIDTH 13.5 % (11.5-14.5)
[2025-04-17 06:22] LABS: CREATININE 0.81 MG/DL (0.60-1.10); TOTAL CARBON DIOXIDE 28.3 MMOL/L (24-32); eCRCL 65 ML/MIN; eGFR 90 ML/MIN
[2025-04-17] MEDS: CefTRIAXone/D5W-Rocephin 1gm 50 ML IV SCH (09:13)
[2025-04-17 10:00] VITALS: BP 116/65; PULSE 75; RESP 17; TEMP 97.3; O2SAT 96
[2025-04-17] MEDS ORDERED: CEPH500C3 PO (11:38)
--- NOTE | 2025-04-17 20:20 | DISCHARGE SUMMARY ---
Discharge Summary Providers to CC ~ Discharge Summary Admission Diagnosis: Metabolic encephalopathy- possible UTI with underlining advanced dementia Hospital Course DATE OF ADMISSION: 04/16/2025 DATE OF DISCHARGE: 04/17/2025 Discharge Diagnosis\Comment: Metabolic encephalopathy acute on chronic Squamous cell carcinoma of the forehead and in the thigh Aortic stenosis Hypertension BPH Operations\Procedures: None Consultants: None Complications: None Condition on DC: Stable New Medications: Cephalexin Monohydrate (Cephalexin) 500 Mg Capsule 1 CAP PO Q8H, #9 CAP Continued Medications: Aspirin (Aspirin EC) 81 Mg Tablet.dr 1 TAB PO HS Beta-Carotene(A) W-C & E/Min* (Ocuvite Tablet*) 1 Each Tablet 1 TAB PO DAILY for 30 Days, #30 TAB Biotin (Biotin) 1 Mg Tablet 1 TAB PO DAILY for 30 Days, #30 TAB 0 Refills Multivitamins (Multivitamins) 1 Each Tablet 1 TAB PO HS for 30 Days, #30 TAB Multivits,Ca,Min/Iron/FA/Lycop (Centrum Men's Tablet) 8 Mg Iron-200 Mcg-600 Mcg Tablet 1 TAB PO DAILY [place]-3 Fatty Acids ([place]-3) 1,000 Mg Capsule 1000 MG PO DAILY, CAP Rosuvastatin Calcium (Rosuvastatin Calcium) 40 Mg Tablet 1 TAB PO QHS Terazosin HCl (Terazosin HCl) 2 Mg Capsule 1 CAP PO HS Discharge Summary: I admitted Mr. 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 ED on a couple of occasions. A sitter is ordered, both soft wrist restraints and mittens as well as all four rails up as restraints ordered and PRN IM Lázaro. In speaking with the patient's the patient will return home once the patient is able to ambulate. There was no overnight events physical therapy worked with the patient and the patient did well and was able to be discharged home to his . The urine culture is negative thus far x1 day. The patient is discharged with a three day course of cephalexin 500 mg t.i.d. with recommendations to buy an [id number] probiotic to avoid antibiotic induced colitis. Gen. No acute distress alert and oriented to self Lungs clear to ascultation bilaterally, no wheezes rales or rhonchi appreciated Heart normal sinus rhythm no murmurs rubs or clicks noted Abdomen soft nontender bowel sounds are normoactive Lower extremities no clubbing cyanosis, nor edema appreciated bilaterally Skin dressing is present over forehead and left inner thigh underneath the thigh dressing is a area of maceration/prior biopsy site 1 cm in diameter The patient was medically cleared to be discharged on 04/17/2025 The patient was seen and evaluated on day of discharge. Time spent on discharge 25 minutes *Problems/Diagnosis: (1) Metabolic encephalopathy Status: Acute Total Time Spent on D/C: Up to 30 Minutes Date of Service: Apr 17, 2025 Billing Provider: MARCY DELAROSA DO Common Visit Codes: 21020-CAD/OBS DISCH DAY <30MIN MARCY DELAROSA DO Apr 17, 2025 20:20
== END 2025-04-17 13:37 | disposition home or self-care (01) | DRG 689 ==
LOC: ER 13:24 → ED HOLD 18:38 → SUR 3N 21:45
PROVIDERS: ADMIT Family Medicine; ATTEND Family Medicine
DX: N39.0 Urinary tract infection, site not specified (principal); G93.41 Metabolic encephalopathy; F03.911 Unspecified dementia, unspecified severity, with agitation; I10 Essential (primary) hypertension; N40.0 Benign prostatic hyperplasia without lower urinary tract symptoms; I35.0 Nonrheumatic aortic (valve) stenosis; E78.00 Pure hypercholesterolemia, unspecified; C44.329 Squamous cell carcinoma of skin of other parts of face; Z79.82 Long term (current) use of aspirin; Z79.899 Other long term (current) drug therapy; Z95.2 Presence of prosthetic heart valve
CPT/HCPCS: 36415; 70450; 72125; 80048; 80053; 81001; 82140; 83605; 83735; 85025; 87081; 87088; 93005; 96365; 96375; 97116; 97161; 97530; 99285; A6213; A6590; G0378; J0696; J1650; J2060; J7030